=== PATIENT | female | born 1965 | race Caucasian/White ===

== ENCOUNTER 2017-09-21 08:11 | Observation (INO) | payer MEDICAID, OTHER ==
[~2017-09-21] VITALS: Ht 162.6 cm; Wt 57.5 kg
[2017-09-21] MEDS ORDERED: ASPIRIN 325 MG TAB PO STA (08:20)
[2017-09-21] MEDS ORDERED: NITROGLYCERIN (SL) 0.4 MG TAB SL PRN ×2 (08:30→11:30)
[2017-09-21] MEDS ORDERED: ONDANSETRON 4 MG INJ IV STA (08:30)
[2017-09-21] MEDS: morphine 4 MG/ML VIAL IV STA ×2 (08:42→08:50)
[2017-09-21 08:49] LABS: BASOPHILS % 0.5 % (0.0-2.0); EOSINOPHILS # 0.1 10^3/ul (0.0-0.5); EOSINOPHILS % 1.8 % (0.0-7.0); HEMATOCRIT 44.1 % (37.0-47.0); HEMOGLOBIN 14.5 g/dl (12.0-16.0); LYMPHOCYTES # 2.1 10^3/ul (0.8-2.9); LYMPHOCYTES % 32.5 % (15.0-51.0); MEAN CORPUSCULAR HEMOGLOBIN 29.3 pg (29.0-33.0); MEAN CORPUSCULAR HGB CONC 32.9 g/dl (32.0-37.0); MEAN CORPUSCULAR VOLUME 89.1 fl (82.0-101.0); MEAN PLATELET VOLUME 11.5 fl (7.4-10.4); MONOCYTE # 0.4 10^3/ul (0.3-0.9); MONOCYTES % 6.6 % (0.0-11.0); NEUTROPHIL # 3.8 10^3/ul (1.6-7.5); PLATELET COUNT 245 10^3/UL (140-415); RED BLOOD COUNT 4.95 10^6/ul (4.20-5.40); RED CELL DISTRIBUTION WIDTH 13.2 % (11.5-14.5); WHITE BLOOD COUNT 6.5 10^3/ul (4.8-10.8)
--- NOTE | 2017-09-21 08:53 | RADRPT ---
PROCEDURE: XR Chest. CLINICAL INDICATION: Chest pain. TECHNIQUE: AP Portable chest. COMPARISON: No pertinent prior examinations were submitted for comparison. FINDINGS: The cardiomediastinal silhouette is normal.The aortic arch is mildly calcified. No focal consolidati on, pleural effusion or pneumothorax is seen. The osseous structures are intact. IMPRESSION: No radiographic evidence of acute cardiopulmonary disease. Physician Nadir Date Time Electronically viewed and signed by Virginia Guillen Physician on 09/21/2017 08:53 MARCELINO/
[2017-09-21 09:05] LABS: INR 0.9; PROTIME 12.1 Sec (12.2-14.2); PT RATIO 0.9
--- NOTE | 2017-09-21 09:05 | ERD ---
ER Documentation Chief Complaint Chief Complaint rody sy CP described as squeezing since 0700 HPI This is a 52-year-old Vietnamese-speaking female with no past medical history that presents to the emergency department complaining of a sudden onset of a squeezing chest pressure that began at 7 AM, an hour and half prior to arrival. The patient indicates that the chest pressure does radiate to the left arm and back. The pain is 10 out of 10 in intensity. She had associated symptoms of nausea but denied any vomiting or diaphoresis. She denies any recent remote blunt or penetrating chest wall trauma. She is right-handed dominant. She has never had any similar symptoms in the past. She has had no fevers or shaking or chills and denies a productive or nonproductive cough. She has no shortness of breath at rest or exertion. She denies any abdominal pain and no numbness or tingling of her upper or lower extremities. ROS All systems reviewed and are negative except as per history of present illness. Physical Exam Vitals Vital Signs Date Time Temp Pulse Resp B/P Pulse Ox O2 Delivery O2 Flow Rate FiO2 09/21/17 09:04 Nasal Cannula 2 09/21/17 08:50 77 14 175/97 98 Nasal Cannula 2.0 09/21/17 08:12 98.7 80 20 188/85 98 Physical Exam Constitutional:Well-developed. Well-nourished. HEENT:Normocephalic. Atraumatic.Pupils were equal round reactive to light. Moist mucous membranes.No tonsillar exudates. Neck: No nuchal rigidity. No lymphadenopathy. No posterior cervical spine tenderness or step-offs. Respiratory: Not using accessory muscles of respiration.Lungs were clear to auscultation bilaterally. No rhonchi. No rales. No wheezing. Cardiovascular: Regular rate regular rhythm.No murmurs. No rubs were appreciated.S1, S2 normal. Distal pulses are palpable 2+ bilaterally. No reproducible chest wall tenderness crepitus or ecchymosis GI: Abdomen was soft. Nontender. Non Distended. No pulsatile abdominal masses or bruits. No rebound. No guarding. Bowel sounds were present and normal. Muscle skeletal: Full range of motion of both the upper and lower extremities bilaterally.Normal muscle tone.No assymetrical calf tenderness or swelling. Skin: No petechia, no purpura. No lesions on the palms or the soles of the feet. No maculopapular rash. NEURO: Patient was alert, awake, orientated x3.No facial droop. Gait observed and normal with no ataxia.Speech had regular rate and rhythm. No focal neurological deficits. Result Diagram: 09/21/17 0837 09/21/17 0837 Results 24 hrs Laboratory Tests Test 09/21/17 08:20 09/21/17 08:37 Prothrombin Time 12.1Sec Prothrombin Time Ratio 0.9 INR International Normalized Ratio 0.90 Activated Partial Thromboplast Time 25.2Sec White Blood Count 6.510^3/ul Red Blood Count 4.9510^6/ul Hemoglobin 14.5g/dl Hematocrit 44.1% Mean Corpuscular Volume 89.1fl Mean Corpuscular Hemoglobin 29.3pg Mean Corpuscular Hemoglobin Concent 32.9g/dl Red Cell Distribution Width 13.2% Platelet Count 24846^3/UL Mean Platelet Volume 11.5fl Neutrophils % 58.0% Lymphocytes % 32.5% Monocytes % 6.6% Eosinophils % 1.8% Basophils % 0.5% Nucleated Red Blood Cells % 0.0/100WBC Neutrophils # 3.810^3/ul Lymphocytes # 2.110^3/ul Monocytes # 0.410^3/ul Eosinophils # 0.110^3/ul Basophils # 0.010^3/ul Nucleated Red Blood Cells # 0.010^3/ul Sodium Level 143mmol/L Potassium Level 3.2mmol/L Chloride Level 105mmol/L Carbon Dioxide Level 25mmol/L Anion Gap 16 Blood Urea Nitrogen 14mg/dl Creatinine 0.59mg/dl Glucose Level 172mg/dl Calcium Level 8.4mg/dl Total Bilirubin 0.8mg/dl Direct Bilirubin 0.00mg/dl Indirect Bilirubin 0.8mg/dl Aspartate Amino Transf (AST/SGOT) 23IU/L Alanine Aminotransferase (ALT/SGPT) 24IU/L Alkaline Phosphatase 110IU/L Creatine Kinase 73IU/L Creatine Kinase Index 1.3 Creatinine Kinase MB (Mass) 0.94ng/ml Troponin I < 0.012ng/ml B-Type Natriuretic Peptide 93PG/ML Total Protein 7.5g/dl Albumin 4.2g/dl Globulin 3.30g/dl Albumin/Globulin Ratio 1.27 Lipase 129U/L Current Medications Medications (Trade) Dose Ordered Sig/Maegan Route PRN Reason Start Time Stop Time Status Last Admin Dose Admin Aspirin (Aspirin) 325 mg ONCE STAT PO 09/21/17 08:20 09/21/17 08:22 DC Nitroglycerin (Nitroglycerin (Sl Tab) 0.4 Mg) 1 tab Q5M UP TO 3 DOSES PRN SL CHEST PAIN 09/21/17 08:30 09/21/17 08:42 Morphine Sulfate (morphine) 4 mg ONCE STAT IV 09/21/17 08:30 09/21/17 08:32 DC 09/21/17 08:50 Ondansetron HCl 4 mg 4 mg ONCE STAT IV 09/21/17 08:30 09/21/17 08:32 DC 09/21/17 08:51 Iohexol 100 ml @ ud STK-MED ONCE .ROUTE 09/21/17 09:31 09/21/17 09:32 DC 09/21/17 09:45 Sodium Chloride (NS) 100 ml @ ud STK-MED ONCE .ROUTE 09/21/17 09:31 09/21/17 09:32 DC 09/21/17 09:45 Procedures/MDM The patient presented to the emergency department with chest pain. My clinical evaluation and workup was to distinguish minor causes of chest pain from acute life threatening conditions such as myocardial infarction, pulmonary embolism, aortic dissection, esophageal rupture, cardiac tamponade. The patient was placed on a property assessment monitor and continuous pulse oximetry. IV access established by nursing staff. Patient received aspirin and nitroglycerin with no improvement of her chest discomfort. Therefore the patient was given intravenous morphine and Zofran as an antiemetic. 12 Lead EKG tracing ordered and reviewed by myself showed: Normal sinus rhythm of 71 bpm and no arrhythmia. ME interval normal. Left axis deviation. Left ventricular hypertrophy. T- wave inversion in the lateral leads V4, V5, V6 and inferior leads III and aVF QRS duration normal. No ST segment elevation No ST segment depression. Chest radiograph showed no evidence of a widening mediastinum or infiltrate. Given the severity of the patient's symptoms with active chest pain radiating to the back I did feel is necessary to obtain a CT scan of the patient's chest which showed no evidence of aortic dissection. The patient will be admitted in serious condition to the hospitalist for serial 12-lead EKG tracings and cardiac set of enzymes Departure Diagnosis: Primary Impression: Chest pain Chest pain type: unspecified Qualified Code: R07.9 - Chest pain, unspecified type Condition: Serious ACOSTAMATEUSZ CORTES Sep 21, 2017 09:05
[2017-09-21 09:06] LABS: PARTIAL THROMBOPLASTIN TIME 25.2 Sec (25.0-35.0)
[2017-09-21 09:11] LABS: ALANINE AMINOTRANSFERASE 24 IU/L (13-69); ALBUMIN 4.2 g/dl (3.3-4.9); ALBUMIN/GLOBULIN RATIO 1.27; ALKALINE PHOSPHATASE 110 IU/L (42-121); ANION GAP 16 (8-16); ASPARTATE AMINO TRANSFERASE 23 IU/L (15-46); BILIRUBIN,INDIRECT 0.8 mg/dl (0-1.1); BILIRUBIN,TOTAL 0.8 mg/dl (0.2-1.3); BLOOD UREA NITROGEN 14 mg/dl (7-20); CALCIUM 8.4 mg/dl (8.4-10.2); CARBON DIOXIDE 25 mmol/L (21-31); CHLORIDE 105 mmol/L (97-110); CREATINE KINASE 73 IU/L (23-200); CREATININE 0.59 mg/dl (0.44-1.00); GLUCOSE 172 mg/dl (70-220); POTASSIUM 3.2 mmol/L (3.5-5.1); SODIUM 143 mmol/L (135-144); TOTAL PROTEIN 7.5 g/dl (6.1-8.1)
[2017-09-21 09:23] LABS: B-TYPE NATRIURETIC PEPTIDE 93 PG/ML (0-125); CK-MB 0.94 ng/ml (0.0-2.4)
[2017-09-21 09:27] LABS: TROPONIN-I < 0.012 ng/ml (0.00-0.12)
[2017-09-21] MEDS ORDERED: SOD CHLORIDE 0.9% 100 ML ONE (09:31)
[2017-09-21] MEDS ORDERED: IOHEXOL 100 ML ONE (09:31)
--- NOTE | 2017-09-21 10:18 | RADRPT ---
PROCEDURE: CT pulmonary angiogram. CLINICAL INDICATION: Chest pain and shortness of breath. TECHNIQUE: CT scan of the chest and CT pulmonary angiogram was performed utilizing axial tomograp hic imaging from the thoracic inlet to the domes of the diaphragm. High-resolution thin slice coron al and sagittal imaging was obtained from the axial source images. 3-D volumetric rendered post pro cessing was performed as well. The patient was examined following the uncomplicated intravenous adm inistration of 80 cc of Isovue 370. The images were reviewed on a PACS workstation. The total exam CTDI equals 56.34, 10.44 and the total exam DLP equals 422.54 mGy-cm. One or more of the following dose reduction techniques were used: Automated exposure control, adjustment of the mA and / or kV a ccording to patient size, or use of iterative reconstruction technique. COMPARISON: Chest x-ray performed earlier on the same date FINDINGS: The lungs demonstrate bilateral apical pleuroparenchymal scarring. No focal airspace opacity, pleur al effusion, or pneumothorax is seen. No pulmonary nodules or masses are identified. There is no ab normal interstitial thickening. The trachea and proximal bronchi are unremarkable. The visualized thyroid is unremarkable. The heart is grossly normal in size and configuration. The left vertebral artery arises directly from the aortic arch. The aorta is normal in caliber. There is no evidence of aortic dissection. The central pulmonary arteries are normal in caliber. The atten uation of the central pulmonary arteries measures 441 HU. No filling defects are identified within the proximal pulmonary arterial branches to suggest pulmonary embolism. No hilar, mediastinal, or axillary lymphadenopathy is identified. Limited evaluation of the upper abdomen is unremarkable. The osseous structures are unremarkable. IMPRESSION: 1. No CT evidence for pulmonary embolism. 2. Mild scarring of the lung apices. The lungs are otherwise clear. RPTAT: HH .Huyen Gan MD, Date Time Electronically viewed and signed by .Huyen Gan MD, MD on 09/21/2017 10:18 .G/
[2017-09-21] MEDS ORDERED: ONDANSETRON 4 MG INJ IV PRN ×2 (11:30)
[2017-09-21] MEDS ORDERED: ACETAMINOPHEN 325 MG TAB PO PRN ×2 (11:30)
[2017-09-21] MEDS ORDERED: MAGNESIUM HYDROXIDE 30ML CUP PO PRN (11:30)
[2017-09-21] MEDS ORDERED: NACL 0.9% 3 ML SYG IV SCH (11:30)
[2017-09-21] MEDS ORDERED: HYDROCODONE/APAP (5/325) TAB PO PRN (11:30)
[2017-09-21] MEDS ORDERED: DOCUSATE SODIUM 100 MG CAP PO PRN (11:30)
[2017-09-21] MEDS ORDERED: morphine 2 MG INJ IV PRN (11:30)
--- NOTE | 2017-09-21 12:07 | HP ---
Date/Time of Note Date/Time of Note DATE: 09/21/17 TIME: 12:07 Assessment/Plan VTE Prophylaxis VTE Prophylaxis Intervention: LMWH Lines/Catheters IV Catheter Type (from Nrsg): Peripheral IV Assessment/Plan Assessment/Plan 1. Chest pain rule out ACS - Patient denies any acid reflux or anxiety symptoms - CTA negative for acute PE - Cardiology consult placed and appreciated recommendations - Trop negative x1 and will continue trending - ECHO ordered- - TSH wnl - Lipid panel wnl - HR in 60s so will hold off on BB - Aspirin started 2. Hypokalemia - 3.2, replaced 3. Right knee arthritis - Tylenol for pain 4. HTN - started on Lisinopril and will adjust as needed - states was not on any medications for BP at home 5. DVT ppx -Lovenox 6. GI ppx - pepcid 7. Code status - Full code 8. Diet - Cardiac 9. Disposition - Admit to telemetry for cardiac workup HPI/ROS Admit Date/Time Admit Date/Time 09/21/17 Hx of Present Illness 52 yo F with PMH right knee arthritis and hypertension presented to ED after experiencing worsening chest pain that started last night around 8pm. Patient states she started experiencing mild chest discomfort 3 weeks ago but resolved so did not seek evaluation. She states she was lying in bed around 8pm when she felt sharp left sided chest pain, nonradiating, with associated diaphoresis. Pain lasted for minutes then resolved. Patient went to sleep and around 1am she woke up to moderate left sided chest pain with associated shortness of breath and diaphoresis lasting minutes again. At 7am she experiencing worsening pain, and came to the ED. Patient denies any associated nausea, vomiting, dizziness, wheezing, loss of consciousness, or abdominal issues. CTA performed in ED was negative for PE. Patient states she is active and was working yesterday prior to CP episodes. ROS Constitutional: no complaints, No diaphoresis, No disoriented, No nausea, No poor po, No weight change Eyes: no complaints ENT: No congestion, No discharge Respiratory: shortness of breath, No cough, No sputum, No wheezing Cardiovascular: chest pain, No edema, No lightheadedness, No palpitations Gastrointestinal: No constipation, No diarrhea, No nausea, No pain, No vomiting Genitourinary: no complaints Musculoskeletal: bone/joint pain (right knee discomfort) Skin: No erythema, No pruritis, No rash Neurologic: no complaints Endocrine: no complaints Lymphatic: no complaints Psychological: no complaints Immunologic: no complaints PMH/Family/Social Past Medical History Medical History: hypertension, other (right knee arthritis) Past Surgical History Past Surgical Hx: other (Csection) Family History Significant Family History: no pertinent family hx Social History Alcohol Use: none Smoking Status: Never smoker Drug Use: none Exam/Review of Systems Vital Signs Vitals Vital Signs Date Time Temp Pulse Resp B/P Pulse Ox O2 Delivery O2 Flow Rate FiO2 09/21/17 11:09 183/94 09/21/17 10:54 53 14 100 Nasal Cannula 2.0 09/21/17 08:12 98.7 Exam Constitutional: alert, oriented, well developed Psych: nl mood/affect Head: atraumatic, normocephalic Eyes: EOMI, PERRL, nl sclera ENMT: mucosa pink and moist Neck: non-tender, supple Respiratory: clear to auscultation, normal air movement, No crackles/rales, No wheezing Cardiovascular: regular rate and rhythm, No edema, No irregular rhythm, No murmurs/extra sounds, No systolic murmur Gastrointestinal: bowel sounds, non-tender, soft, No distended, No rebound or guarding Genitourinary - Female: No CVA tenderness Musculoskeletal: nl extremities to inspection Extremities: normal pulses Neurological: LAN ENGINEER II-XII intact, nl mental status, nl speech, nl strength Skin: nl turgor Lymph: nl lymph nodes Labs Result Diagram: 09/21/1783609/21/1737 Medications Medications Home medications reviewed Procedures Procedures PROCEDURE: CT pulmonary angiogram. CLINICAL INDICATION: Chest pain and shortness of breath. TECHNIQUE: CT scan of the chest and CT pulmonary angiogram was performed utilizing axial tomographic imaging from the thoracic inlet to the domes of the diaphragm. High-resolution thin slice coronal and sagittal imaging was obtained from the axial source images. 3-D volumetric rendered post processing was performed as well. The patient was examined following the uncomplicated intravenous administration of 80 cc of Isovue 370. The images were reviewed on a PACS workstation. The total exam CTDI equals 56.34, 10.44 and the total exam DLP equals 422.54 mGy-cm. One or more of the following dose reduction techniques were used: Automated exposure control, adjustment of the mA and / or kV according to patient size, or use of iterative reconstruction technique. COMPARISON: Chest x-ray performed earlier on the same date FINDINGS: The lungs demonstrate bilateral apical pleuroparenchymal scarring. No focal airspace opacity, pleural effusion, or pneumothorax is seen. No pulmonary nodules or masses are identified. There is no abnormal interstitial thickening. The trachea and proximal bronchi are unremarkable. The visualized thyroid is unremarkable. The heart is grossly normal in size and configuration. The left vertebral artery arises directly from the aortic arch. The aorta is normal in caliber. There is no evidence of aortic dissection. The central pulmonary arteries are normal in caliber. The attenuation of the central pulmonary arteries measures 441 HU. No filling defects are identified within the proximal pulmonary arterial branches to suggest pulmonary embolism. No hilar, mediastinal, or axillary lymphadenopathy is identified. Limited evaluation of the upper abdomen is unremarkable. The osseous structures are unremarkable. IMPRESSION: 1. No CT evidence for pulmonary embolism. 2. Mild scarring of the lung apices. The lungs are otherwise clear. PROCEDURE: XR Chest. CLINICAL INDICATION: Chest pain. TECHNIQUE: AP Portable chest. COMPARISON: No pertinent prior examinations were submitted for comparison. FINDINGS: The cardiomediastinal silhouette is normal.The aortic arch is mildly calcified. No focal consolidation, pleural effusion or pneumothorax is seen. The osseous structures are intact. IMPRESSION: No radiographic evidence of acute cardiopulmonary disease. PRITI WOLFF MD Sep 21, 2017 12:07
[2017-09-21 12:25] LABS: CHOL/HDL RATIO 3.9 RATIO
[2017-09-21] MEDS ORDERED: hydrALAzine 20 MG INJ IV PRN (12:30)
[2017-09-21] MEDS ORDERED: LISINOPRIL 5 MG TAB PO SCH (12:30)
[2017-09-21 15:30] VITALS: Ht 162.6 cm; Wt 57.5 kg
[2017-09-21] MEDS: ISOSORBIDE MONONITRATE(SR)30 MG TAB PO SCH (16:00)
[2017-09-21 16:58] VITALS: PULSE 50
--- NOTE | 2017-09-21 18:29 | CONS ---
DATE OF ADMISSION: 09/21/2017 DATE OF CONSULTATION: 09/21/2017 REASON FOR CONSULTATION: Chest pain. HISTORY OF PRESENT ILLNESS: The patient is a 52-year-old female who comes in with chest pain on and off for the last 2 weeks. However, today the chest pain was more severe in nature, localized to th e left side of the chest and radiates into the left upper extremity associated with numbness. She d enies any shortness of breath, dizziness, syncope or palpitation. Denies nausea or vomiting. Denie s headache or blurry vision. No fever, chills, or rigors. No prior history of coronary artery disease or myocardial infarction. No prior history of diabetes, hypertension, or dyslipidemia. SOCIAL HISTORY: No smoking, alcohol or recreational drug. ALLERGIES: NONE. CURRENT MEDICATIONS: Include: 1. Aspirin. 2. Lovenox. 3. Lisinopril. 4. Pepcid. REVIEW OF SYSTEMS: Unremarkable except that mentioned in the HPI. PHYSICAL EXAMINATION: VITAL SIGNS: Temperature is 98.7, heart rate of 51, blood pressure 145/91 mmHg, breathing at 13 and saturating 100% on 2 liters of oxygen. GENERAL: The patient awake, alert, oriented, in no apparent distress. NECK: No JVD or carotid bruit. CARDIOVASCULAR: Regular rate and rhythm, no murmur, rub or gallop. LUNGS: Clear to auscultation. ABDOMEN: Soft. Bowel sounds are present. There is no organomegaly. EXTREMITIES: No pedal edema. Pedal pulses are felt bilaterally. Review of 12-lead EKG shows normal sinus rhythm with a ventricular rate of ____(02:01) beats per min [place] with normal NH, normal QRS and normal QT intervals, with left atrial enlargement, left axis charity ation, left ventricular hypertrophy with T-wave inversion in inferior leads and anterolateral leads. Chest x-ray shows no congestion or infiltrate. CTA shows no evidence of pulmonary embolism. LABORATORY DATA: WBC 6.5, hemoglobin 14.5, hematocrit 44.1 with a platelet 245, sodium 143, potassi um 3.2, chloride 105, CO2 of 25, BUN 14, creatinine 0.59, BNP of 93. Troponin first set is less shlomo n 0.01. Labs: LDL 99, cholesterol 170, triglyceride 141, HDL 43. TSH is 1.7. ASSESSMENT AND PLAN: A 52-year-old female with: 1. Atypical chest pain. 2. Abnormal electrocardiogram with T-wave inversion in inferior and anterolateral leads. RECOMMENDATIONS: 1. Trend troponins. 2. Echocardiogram to assess for systolic function and to rule out for pulmonary artery disease and pericardial effusion. 3. Recommend stress test in the presence of ischemic changes with T-wave inversions in inferior and anterolateral leads. 4. Continue aspirin. 5. Increase lisinopril to 40 mg daily. 6. Continue nitro patch. 7. Monitor on telemetry. Dictated By: MARLYN LAZO MD SR/NTS Conf#: [id number] DID#: [id number]
[2017-09-21 20:16] VITALS: PULSE 71
[2017-09-21 20:35] VITALS: BP 144/74; RESP 17
[2017-09-21] MEDS: FAMOTIDINE 20 MG TAB PO SCH (21:00)
[2017-09-21] MEDS ORDERED: INFLUENZA VIRUS VACCINE 0.5 ML SYG IM* ONE (21:00)
[2017-09-22] VITALS (10 sets, daily range): BP systolic 126–135; BP diastolic 63–73; PULSE 49–84; RESP 17–20
[2017-09-22 07:35] LABS: BASOPHILS % 0.4 % (0.0-2.0); EOSINOPHILS # 0.1 10^3/ul (0.0-0.5); EOSINOPHILS % 1.2 % (0.0-7.0); HEMATOCRIT 43.1 % (37.0-47.0); HEMOGLOBIN 13.9 g/dl (12.0-16.0); LYMPHOCYTES # 1.9 10^3/ul (0.8-2.9); LYMPHOCYTES % 27.7 % (15.0-51.0); MEAN CORPUSCULAR HEMOGLOBIN 29.1 pg (29.0-33.0); MEAN CORPUSCULAR HGB CONC 32.3 g/dl (32.0-37.0); MEAN CORPUSCULAR VOLUME 90.4 fl (82.0-101.0); MONOCYTE # 0.5 10^3/ul (0.3-0.9); MONOCYTES % 7.9 % (0.0-11.0); NEUTROPHIL # 4.3 10^3/ul (1.6-7.5); NEUTROPHILS % 62.5 % (39.0-77.0); PLATELET COUNT 247 10^3/UL (140-415); RED BLOOD COUNT 4.77 10^6/ul (4.20-5.40); RED CELL DISTRIBUTION WIDTH 13.4 % (11.5-14.5); WHITE BLOOD COUNT 6.9 10^3/ul (4.8-10.8)
[2017-09-22 07:56] LABS: ALBUMIN 3.9 g/dl (3.3-4.9); CALCIUM 8.7 mg/dl (8.4-10.2); CREATININE 0.64 mg/dl (0.44-1.00); PHOSPHORUS 4.3 mg/dl (2.5-4.9); POTASSIUM 4.1 mmol/L (3.5-5.1)
[2017-09-22] MEDS: ASPIRIN 81 MG TAB PO SCH (08:24)
[2017-09-22] MEDS: FAMOTIDINE 20 MG TAB PO SCH ×2 (08:25→22:27)
[2017-09-22] MEDS: LISINOPRIL 20 MG TAB PO SCH (08:25)
[2017-09-22] MEDS: ISOSORBIDE MONONITRATE(SR)30 MG TAB PO SCH (08:25)
[2017-09-22] MEDS: ENOXAPARIN 40 MG/0.4 ML SYG SC SCH (08:31)
[2017-09-22] MEDS ORDERED: REGADENOSON 0.4 MG/5 ML SYG ONE (13:47)
--- NOTE | 2017-09-22 14:19 | CONS ---
Date/Time of Note Date/Time of Note DATE: 09/22/17 TIME: 14:16 Assessment/Plan Assessment/Plan Chief Complaint/Hosp Course ASSESSMENT AND PLAN: A 52-year-old female with: 1. Chest pain.-negative trop x 3 2. Abnormal electrocardiogram with T-wave inversion in inferior and anterolateral leads. 3. HTN 4.Dysliidemia-low HDL Recc; -Tele -serial ecg's -Continue imdur/ACEI -Lexiscan stress test today Problems: Consultation Date/Type/Reason Admit Date/Time Sep 21, 2017 at 12:07 Initial Consult Date 09/21/2017 Type of Consultation: cardiology Reason for Consultation chest pain Referring Provider: PRITI WOLFF MD Exam/Review of Systems Vital Signs Vitals Vital Signs Date Time Temp Pulse Resp B/P Pulse Ox O2 Delivery O2 Flow Rate FiO2 09/22/17 12:37 98.5 62 17 127/67 94 09/21/17 15:04 Nasal Cannula 2.0 Intake and Output 09/21/17 09/21/17 09/22/17 15:00 23:00 07:00 Intake Total 500 ml Balance 500 ml Exam Review of Systems: CONSTITUTIONAL: No fevers, chills. PULMONARY: No sob CARDIOVASCULAR:intermittent chest pain GASTROINTESTINAL: No nausea/vomiting. GENITOURINARY: No hematuria/dysuria. MUSCULOSKELETAL: No myagias/arthalgias. PSYCHIATRIC: The patient denies depression. NEUROLOGIC: No weakness Constitutional: alert Psych: no complaints Head: normocephalic ENMT: mucosa pink and moist Neck: jvd (9 cm water), supple Respiratory: diminished breath sounds (at bases/B) Cardiovascular: regular rate and rhythm Gastrointestinal: non-tender, soft Musculoskeletal: muscle tone (normal) Extremities: edema (none) Neurological: other (No focal deficits) Results Result Diagram: 09/22/17 0553 09/22/17 0553 Results 24 hrs Laboratory Tests Test 09/21/17 18:50 09/22/17 00:28 09/22/17 05:53 Troponin I < 0.012 < 0.012 < 0.012 White Blood Count 6.9 Red Blood Count 4.77 Hemoglobin 13.9 Hematocrit 43.1 Mean Corpuscular Volume 90.4 Mean Corpuscular Hemoglobin 29.1 Mean Corpuscular Hemoglobin Concent 32.3 Red Cell Distribution Width 13.4 Platelet Count 247 Mean Platelet Volume 12.0 H Neutrophils % 62.5 Lymphocytes % 27.7 Monocytes % 7.9 Eosinophils % 1.2 Basophils % 0.4 Nucleated Red Blood Cells % 0.0 Neutrophils # 4.3 Lymphocytes # 1.9 Monocytes # 0.5 Eosinophils # 0.1 Basophils # 0.0 Nucleated Red Blood Cells # 0.0 Sodium Level 142 Potassium Level 4.1 Chloride Level 102 Carbon Dioxide Level 31 Anion Gap 13 Blood Urea Nitrogen 16 Creatinine 0.64 Glucose Level 105 # Calcium Level 8.7 Phosphorus Level 4.3 Magnesium Level 2.0 Albumin 3.9 Medications Medications Current Medications Ondansetron HCl (Zofran Inj) 4 mg Q6H PRN IV NAUSEA AND/OR VOMITING; Start 09/21/17 at 11:30 Aspirin (Aspirin) 81 mg DAILY PO Last administered on 09/22/17 08:24; Admin Dose 81 MG; Start 09/22/17 at 09:00 Nitroglycerin (Nitroglycerin (Sl Tab) 0.4 Mg) 1 tab Q5M PRN SL CHEST PAIN; Start 09/21/17 at 11:30 Acetaminophen (Tylenol Tab) 650 mg Q6H PRN PO PAIN LEVEL 1-3 OR FEVER; Start 09/21/17 at 11:30 Acetaminophen/ Hydrocodone Bitart (Benedicta (5/325)) 1 tab Q6H PRN PO PAIN LEVEL 4 -6; Start 09/21/17 at 11:30 Morphine Sulfate (morphine) 2 mg Q4H PRN IV PAIN LEVEL 7-10; Start 09/21/17 at 11:30 Docusate Sodium (Colace) 100 mg Q12H PRN PO CONSTIPATION; Start 09/21/17 at 11: 30 Magnesium Hydroxide (Milk Of Mag) 30 ml DAILY PRN PO CONSTIPATION; Start at 11:30 Famotidine (Pepcid) 20 mg Q12 PO Last administered on 09/22/17 08:25; Admin Dose 20 MG; Start 09/21/17 at 21:00 Enoxaparin Sodium (Lovenox) 40 mg DAILY SC Last administered on 09/22/17 08:31 ; Admin Dose 40 MG; Start 09/22/17 at 09:00 Hydralazine HCl (Apresoline) 10 mg Q6H PRN IV SBP >160; Start 09/21/17 at 12:30 Lisinopril (Zestril) 40 mg DAILY PO Last administered on 09/22/17 08:25; Admin Dose 40 MG; Start 09/22/17 at 09:00 Isosorbide Mononitrate (Imdur) 30 mg DAILY PO Last administered on 09/22/17 08 :25; Admin Dose 30 MG; Start 09/21/17 at 16:00 Methocarbamol (Robaxin) 1,500 mg TID PO ; Start 09/22/17 at 13:00 NASREEN VELOZ Sep 22, 2017 14:19
--- NOTE | 2017-09-22 15:48 | CONS ---
DATE OF ADMISSION: 09/21/2017 DATE OF CONSULTATION: 09/22/2017 CASSANDRA FOR CONSULTATION: Chest pain, assess for acute coronary syndrome. BASELINE VITAL SIGNS/ELECTROCARDIOGRAM: Pulse 56, blood pressure 145/72. Electrocardiogram reveals sinus bradycardia at a rate of 56 with inferior, anterolateral T-wave inversions. PROCEDURE: The patient underwent standard Lexiscan infusion protocol over 10 seconds followed by ra diolabeled tracer. The patient's test was stopped due to completion of protocol. Maximal achieved blood pressure during the test of 117/59. Maximum heart rate during the test 90. ECG FINDINGS: The patient did not develop any new Lexiscan-induced ST or T-wave changes from baseli ne abnormalities. No documented PVCs. SYMPTOMS: The patient had complaint shortness of breath during stress test which resolved in recove ry. No chest pain. IMPRESSION: 1. No Lexiscan-induced ST or T-wave changes from baseline abnormalities or diagnostic cardiac ische isak. 2. Complaints of shortness of breath during stress test that resolved in recovery. 3. No chest pain during stress testing. 4. No documented premature ventricular contractions during stress testing. 5. Report of nuclear images to follow in separate dictation. Dictated By: NASREEN DICKENS/YULIANA Conf#: [id number] DID#: [id number] CC: Dr. Bray;*End*
[2017-09-22] MEDS: METHOCARBAMOL 750 MG TAB PO SCH ×2 (15:58→22:27)
--- NOTE | 2017-09-22 16:21 | PN ---
Date/Time of Note Date/Time of Note DATE: 09/22/17 TIME: 16:19 Assessment/Plan VTE Prophylaxis VTE Prophylaxis Intervention: SCD's Lines/Catheters IV Catheter Type (from [facility]): Saline Lock Urinary Cath still in place: No Assessment/Plan Chief Complaint/Hosp Course 1. Chest pain rule out ACS - Patient denies any acid reflux or anxiety symptoms - CTA negative for acute PE - Cardiology consult placed and appreciated recommendations - Trop negative x1 and will continue trending - ECHO ordered- - TSH wnl - Lipid panel wnl - HR in 60s so will hold off on BB - Aspirin started 2. Hypokalemia - 3.2, replaced 3. Right knee arthritis - Tylenol for pain 4. HTN - started on Lisinopril and will adjust as needed - states was not on any medications for BP at home 5. DVT ppx -Lovenox 6. GI ppx - pepcid 7. Code status - Full code 8. Diet - Cardiac 9. Disposition -lexiscan negative, but chest pain continues, will try robaxin, likely DC tomorrow Problems: Subjective 24 Hr Interval Summary Free Text/Dictation still occasional chest pain, left sided Exam/Review of Systems Vital Signs Vitals Vital Signs Date Time Temp Pulse Resp B/P Pulse Ox O2 Delivery O2 Flow Rate FiO2 09/22/17 12:37 98.5 62 17 127/67 94 09/21/17 15:04 Nasal Cannula 2.0 Intake and Output 09/21/17 09/21/17 09/22/17 15:00 23:00 07:00 Intake Total 500 ml Balance 500 ml Exam Physical exam General: Patient is laying in bed and answers questions appropriately Mentation: Patient is alert and oriented 4, Head: Normocephalic atraumatic Eyes: EOMI, pupils reactive to light Neck: Supple, nontender, midline Respiratory: Clear to auscultation bilaterally Cardiovascular: regular rate, no obvious murmurs Gastrointestinal: non-tender to palpation, bowel sounds heard. Neurological: Moves all extremities spontaneously Skin: No new skin lesions Results Result Diagram: 09/22/17 0553 09/22/17 0553 Results 24 hrs Laboratory Tests Test 09/21/17 18:50 09/22/17 00:28 09/22/17 05:53 Troponin I < 0.012 < 0.012 < 0.012 White Blood Count 6.9 Red Blood Count 4.77 Hemoglobin 13.9 Hematocrit 43.1 Mean Corpuscular Volume 90.4 Mean Corpuscular Hemoglobin 29.1 Mean Corpuscular Hemoglobin Concent 32.3 Red Cell Distribution Width 13.4 Platelet Count 247 Mean Platelet Volume 12.0 H Neutrophils % 62.5 Lymphocytes % 27.7 Monocytes % 7.9 Eosinophils % 1.2 Basophils % 0.4 Nucleated Red Blood Cells % 0.0 Neutrophils # 4.3 Lymphocytes # 1.9 Monocytes # 0.5 Eosinophils # 0.1 Basophils # 0.0 Nucleated Red Blood Cells # 0.0 Sodium Level 142 Potassium Level 4.1 Chloride Level 102 Carbon Dioxide Level 31 Anion Gap 13 Blood Urea Nitrogen 16 Creatinine 0.64 Glucose Level 105 # Calcium Level 8.7 Phosphorus Level 4.3 Magnesium Level 2.0 Albumin 3.9 Medications Medications Current Medications Ondansetron HCl (Zofran Inj) 4 mg Q6H PRN IV NAUSEA AND/OR VOMITING; Start 09/21/17 at 11:30 Aspirin (Aspirin) 81 mg DAILY PO Last administered on 09/22/17 08:24; Admin Dose 81 MG; Start 09/22/17 at 09:00 Nitroglycerin (Nitroglycerin (Sl Tab) 0.4 Mg) 1 tab Q5M PRN SL CHEST PAIN; Start 09/21/17 at 11:30 Acetaminophen (Tylenol Tab) 650 mg Q6H PRN PO PAIN LEVEL 1-3 OR FEVER; Start 09/21/17 at 11:30 Acetaminophen/ Hydrocodone Bitart ([place] (5/325)) 1 tab Q6H PRN PO PAIN LEVEL 4 -6; Start 09/21/17 at 11:30 Morphine Sulfate (morphine) 2 mg Q4H PRN IV PAIN LEVEL 7-10; Start 09/21/17 at 11:30 Docusate Sodium (Colace) 100 mg Q12H PRN PO CONSTIPATION; Start 09/21/17 at 11: 30 Magnesium Hydroxide (Milk Of Mag) 30 ml DAILY PRN PO CONSTIPATION; Start at 11:30 Famotidine (Pepcid) 20 mg Q12 PO Last administered on 09/22/17 08:25; Admin Dose 20 MG; Start 09/21/17 at 21:00 Enoxaparin Sodium (Lovenox) 40 mg DAILY SC Last administered on 09/22/17 08:31 ; Admin Dose 40 MG; Start 09/22/17 at 09:00 Hydralazine HCl (Apresoline) 10 mg Q6H PRN IV SBP >160; Start 09/21/17 at 12:30 Lisinopril (Zestril) 40 mg DAILY PO Last administered on 09/22/17 08:25; Admin Dose 40 MG; Start 09/22/17 at 09:00 Isosorbide Mononitrate (Imdur) 30 mg DAILY PO Last administered on 09/22/17 08 :25; Admin Dose 30 MG; Start 09/21/17 at 16:00 Methocarbamol (Robaxin) 1,500 mg TID PO Last administered on 09/22/17 15:58; Admin Dose 1,500 MG; Start 09/22/17 at 13:00 DEE BUSTAMANTE Sep 22, 2017 16:20
--- NOTE | 2017-09-22 16:24 | RADRPT ---
PROCEDURE: Lexiscan myocardial perfusion study CLINICAL INDICATION: 52 -year-old patient complaining of chest pain. TECHNIQUE: Lexiscan 0.4 mg intravenously separate acquisition gated myocardial perfusion SPECT usi ng Tc 99m Myoview 27.0 mCi intravenously at stress and Tc-99m Myoview, 10.0 mCi intravenously at res t was performed using the rest/stress sequence. Poststress Myoview SPECT images were obtained in th e supine position. COMPARISON: No prior studies. FINDINGS: Perfusion images reveal no evidence of perfusion defects. Lexiscan post stress gated SPECT images demonstrate no wall motion abnormalities. IMPRESSION: 1. No evidence of perfusion defects. 2. No wall motion abnormalities. 3. The left ventricle ejection fraction at stress is 63%. A call report was made to Dr. Odell at 04:23 p.m. on September 22, 2017. RPTAT: HH .Catalina Harry MD, Date Time Electronically viewed and signed by .Catalina Harry MD, MD on 09/22/2017 16:23 .L/
[2017-09-23] VITALS: BP 112/53; RESP 16
[2017-09-23 00:42] VITALS: PULSE 65
[2017-09-23 04:00] VITALS: BP 118/56; RESP 15
[2017-09-23 04:51] VITALS: PULSE 78
[2017-09-23 07:41] VITALS: BP 135/68; RESP 17
[2017-09-23 08:23] VITALS: PULSE 56
[2017-09-23 08:50] LABS: BASOPHILS % 0.2 % (0.0-2.0); EOSINOPHILS # 0.1 10^3/ul (0.0-0.5); EOSINOPHILS % 0.8 % (0.0-7.0); HEMATOCRIT 40.9 % (37.0-47.0); HEMOGLOBIN 13.8 g/dl (12.0-16.0); LYMPHOCYTES % 23.8 % (15.0-51.0); MEAN CORPUSCULAR HEMOGLOBIN 30.5 pg (29.0-33.0); MEAN CORPUSCULAR HGB CONC 33.7 g/dl (32.0-37.0); MEAN CORPUSCULAR VOLUME 90.3 fl (82.0-101.0); MEAN PLATELET VOLUME 12.1 fl (7.4-10.4); MONOCYTE # 0.7 10^3/ul (0.3-0.9); MONOCYTES % 8.4 % (0.0-11.0); NEUTROPHIL # 5.6 10^3/ul (1.6-7.5); NEUTROPHILS % 66.6 % (39.0-77.0); PLATELET COUNT 236 10^3/UL (140-415); RED BLOOD COUNT 4.53 10^6/ul (4.20-5.40); RED CELL DISTRIBUTION WIDTH 13.3 % (11.5-14.5); WHITE BLOOD COUNT 8.4 10^3/ul (4.8-10.8)
[2017-09-23] MEDS: ASPIRIN 81 MG TAB PO SCH (08:53)
[2017-09-23] MEDS: ISOSORBIDE MONONITRATE(SR)30 MG TAB PO SCH (08:54)
[2017-09-23] MEDS: LISINOPRIL 20 MG TAB PO SCH (08:54)
[2017-09-23] MEDS: FAMOTIDINE 20 MG TAB PO SCH (08:56)
[2017-09-23] MEDS: ENOXAPARIN 40 MG/0.4 ML SYG SC SCH (08:59)
[2017-09-23] MEDS: METHOCARBAMOL 750 MG TAB PO SCH (09:03)
[2017-09-23 09:22] LABS: ALBUMIN 3.7 g/dl (3.3-4.9); CALCIUM 8.5 mg/dl (8.4-10.2); CREATININE 0.63 mg/dl (0.44-1.00); PHOSPHORUS 3.7 mg/dl (2.5-4.9); POTASSIUM 3.7 mmol/L (3.5-5.1)
[2017-09-23] MEDS ORDERED: FAMO20TA18 PO (09:40)
[2017-09-23] MEDS ORDERED: LISI40TA9 PO (09:40)
[2017-09-23] MEDS ORDERED: ASPI81TA3 PO (09:40)
--- NOTE | 2017-09-23 09:42 | PDOCDIS ---
Discharge Instructions CONDITION Patient Condition: Stable HOME CARE INSTRUCTIONS: Special Diet: cardiac FOLLOW UP/APPOINTMENTS Follow-up Plan 1. Follow up with your primary care provider as soon as possible DEE BUSTAMANTE Sep 23, 2017 09:42
--- NOTE | 2017-09-23 11:07 | CONS ---
Date/Time of Note Date/Time of Note DATE: 09/23/17 TIME: 11:06 Assessment/Plan Assessment/Plan Additional Assessment/Plan 1. Chest pain.-negative trop x 3 - STRESS TEST NL EF, no ischemia 2. Abnormal electrocardiogram with T-wave inversion in inferior and anterolateral leads- r/o OK. 3. HTN - better now, Rx as needed 4.Dysliidemia-low HDL Consultation Date/Type/Reason Admit Date/Time Sep 21, 2017 at 12:07 Initial Consult Date Type of Consultation: cardiology Referring Provider: PRITI WOLFF MD 24 HR Interval Summary Free Text/Dictation NO acute events - no ectopy on tele - negative stress test ROS: No fever, no chills, no nausea, no vomiting, no diarrhea/constipation No recent weight changes No chest pain, no PND, no orthopnea No dizziness, blurred vision No thirst, no heat or cold intolerance Exam/Review of Systems Vital Signs Vitals Vital Signs Date Time Temp Pulse Resp B/P Pulse Ox O2 Delivery O2 Flow Rate FiO2 09/23/17 08:23 56 09/23/17 07:41 98.4 17 135/68 97 09/22/17 20:00 Room Air 09/21/17 15:04 2.0 Intake and Output 09/22/17 09/22/17 09/23/17 15:00 23:00 07:00 Intake Total 70 ml Balance 70 ml Exam General: WN/WD/NAD, AOx 3 HEENT: Unicetric/atraumatic/EOMI (follow commands) NECK: JVD elevated, no thyromegaly Lymph: no lymphadenopathy HEART: regular with no S3, II/ systolic murmur at apex LUNGS: Coarse sounds ABD: soft, NT, ND, +BS : Intact Neuro: non focal SKIN: chronic changes EXT: trace edema Results Result Diagram: 09/23/1772609/23/17726 Results 24 hrs Laboratory Tests Test 09/23/17 07:27 White Blood Count 8.4 # Red Blood Count 4.53 Hemoglobin 13.8 Hematocrit 40.9 Mean Corpuscular Volume 90.3 Mean Corpuscular Hemoglobin 30.5 Mean Corpuscular Hemoglobin Concent 33.7 Red Cell Distribution Width 13.3 Platelet Count 236 Mean Platelet Volume 12.1 H Neutrophils % 66.6 Lymphocytes % 23.8 Monocytes % 8.4 Eosinophils % 0.8 Basophils % 0.2 Nucleated Red Blood Cells % 0.0 Neutrophils # 5.6 Lymphocytes # 2.0 Monocytes # 0.7 Eosinophils # 0.1 Basophils # 0.0 Nucleated Red Blood Cells # 0.0 Sodium Level 141 Potassium Level 3.7 Chloride Level 104 Carbon Dioxide Level 30 Anion Gap 11 Blood Urea Nitrogen 14 Creatinine 0.63 Glucose Level 105 Calcium Level 8.5 Phosphorus Level 3.7 Magnesium Level 2.0 Albumin 3.7 Medications Medications Current Medications Ondansetron HCl (Zofran Inj) 4 mg Q6H PRN IV NAUSEA AND/OR VOMITING; Start 09/21/17 at 11:30 Aspirin (Aspirin) 81 mg DAILY PO Last administered on 09/23/17 08:53; Admin Dose 81 MG; Start 09/22/17 at 09:00 Nitroglycerin (Nitroglycerin (Sl Tab) 0.4 Mg) 1 tab Q5M PRN SL CHEST PAIN; Start 09/21/17 at 11:30 Acetaminophen (Tylenol Tab) 650 mg Q6H PRN PO PAIN LEVEL 1-3 OR FEVER; Start 09/21/17 at 11:30 Acetaminophen/ Hydrocodone Bitart ([place] (5/325)) 1 tab Q6H PRN PO PAIN LEVEL 4 -6; Start 09/21/17 at 11:30 Morphine Sulfate (morphine) 2 mg Q4H PRN IV PAIN LEVEL 7-10; Start 09/21/17 at 11:30 Docusate Sodium (Colace) 100 mg Q12H PRN PO CONSTIPATION; Start 09/21/17 at 11: 30 Magnesium Hydroxide (Milk Of Mag) 30 ml DAILY PRN PO CONSTIPATION; Start at 11:30 Famotidine (Pepcid) 20 mg Q12 PO Last administered on 09/23/17 08:56; Admin Dose 20 MG; Start 09/21/17 at 21:00 Enoxaparin Sodium (Lovenox) 40 mg DAILY SC Last administered on 09/23/17 08:59 ; Admin Dose 40 MG; Start 09/22/17 at 09:00 Hydralazine HCl (Apresoline) 10 mg Q6H PRN IV SBP >160; Start 09/21/17 at 12:30 Lisinopril (Zestril) 40 mg DAILY PO Last administered on 09/23/17 08:54; Admin Dose 40 MG; Start 09/22/17 at 09:00 Isosorbide Mononitrate (Imdur) 30 mg DAILY PO Last administered on 09/23/17 08 :54; Admin Dose 30 MG; Start 09/21/17 at 16:00 Methocarbamol (Robaxin) 1,500 mg TID PO Last administered on 09/23/17 09:03; Admin Dose 1,500 MG; Start 09/22/17 at 13:00 ROHIT COLEMAN MD Sep 23, 2017 11:07
--- NOTE | 2017-09-23 14:56 | DS ---
Date/Time of Note Date/Time of Note DATE: 09/23/17 TIME: 14:56 Discharge Summary Admission/Discharge Info Admit Date/Time Sep 21, 2017 at 12:07 Discharge Date/Time Sep 23, 2017 at 11:47 Patient Condition: Stable Hx of Present Illness 52 yo F with PMH right knee arthritis and hypertension presented to ED after experiencing worsening chest pain that started last night around 8pm. Patient states she started experiencing mild chest discomfort 3 weeks ago but resolved so did not seek evaluation. She states she was lying in bed around 8pm when she felt sharp left sided chest pain, nonradiating, with associated diaphoresis. Pain lasted for minutes then resolved. Patient went to sleep and around 1am she woke up to moderate left sided chest pain with associated shortness of breath and diaphoresis lasting minutes again. At 7am she experiencing worsening pain, and came to the ED. Patient denies any associated nausea, vomiting, dizziness, wheezing, loss of consciousness, or abdominal issues. CTA performed in ED was negative for PE. Patient states she is active and was working yesterday prior to CP episodes. Hospital Course Patient is a 52-year-old female who presents for chest pain. Patient has past medical history significant for hypertension but not adequately treated due to patient not following up with primary care provider. Patient was evaluated in the ED and admitted to the medicine service and seen by cardiology. Cardiology control patient's blood pressure and then perform stress test. Stress test was negative for any acute ischemic findings and patient will be discharged with an appropriate dosage of her hypertension medications. Patient's chest pain is likely musculoskeletal or GI related at this time as it is improved and there are no signs of ischemic disease. Patient was given advice to follow-up with a primary care provider chest pain persists and to follow-up with moderate use of Tylenol and NSAIDs for occasional pain. Patient understands that the most important factor in her evaluation is to follow-up with her primary care provider. Chest pain, likely secondary to musculoskeletal strain Electrolyte derangement, resolved Right knee arthritis, chronic Hypertension, Medical noncompliance Home Meds Active Scripts Famotidine* (Famotidine*) 20 Mg Tablet, 20 MG PO Q12 for 30 Days, #60 TAB Prov:DEE BUSTAMANTE 09/23/17 Lisinopril* (Lisinopril*) 40 Mg Tablet, 40 MG PO DAILY, #30 TAB 2 Refills Prov:DEE BUSTAMANTE 09/23/17 Follow-up Plan 1. Follow up with your primary care provider as soon as possible Primary Care Provider Care Physician No Primary Time spent on discharge: > 30 minutes Pending Labs Laboratory Tests Test 09/23/17 07:27 White Blood Count 8.410^3/ul (4.8-10.8) Red Blood Count 4.5310^6/ul (4.20-5.40) Hemoglobin 13.8g/dl (12.0-16.0) Hematocrit 40.9% (37.0-47.0) Mean Corpuscular Volume 90.3fl (82.0-101.0) Mean Corpuscular Hemoglobin 30.5pg (29.0-33.0) Mean Corpuscular Hemoglobin Concent 33.7g/dl (32.0-37.0) Red Cell Distribution Width 13.3% (11.5-14.5) Platelet Count 21840^3/UL (140-415) Mean Platelet Volume 12.1fl (7.4-10.4) Neutrophils % 66.6% (39.0-77.0) Lymphocytes % 23.8% (15.0-51.0) Monocytes % 8.4% (0.0-11.0) Eosinophils % 0.8% (0.0-7.0) Basophils % 0.2% (0.0-2.0) Nucleated Red Blood Cells % 0.0/100WBC (0.0-0.0) Neutrophils # 5.610^3/ul (1.6-7.5) Lymphocytes # 2.010^3/ul (0.8-2.9) Monocytes # 0.710^3/ul (0.3-0.9) Eosinophils # 0.110^3/ul (0.0-0.5) Basophils # 0.010^3/ul (0.0-0.1) Nucleated Red Blood Cells # 0.010^3/ul (0.0-0.0) Sodium Level 141mmol/L (135-144) Potassium Level 3.7mmol/L (3.5-5.1) Chloride Level 104mmol/L (97-110) Carbon Dioxide Level 30mmol/L (21-31) Anion Gap 11 (8-16) Blood Urea Nitrogen 14mg/dl (7-20) Creatinine 0.63mg/dl (0.44-1.00) Glucose Level 105mg/dl (70-220) Calcium Level 8.5mg/dl (8.4-10.2) Phosphorus Level 3.7mg/dl (2.5-4.9) Magnesium Level 2.0mg/dl (1.7-2.5) Albumin 3.7g/dl (3.3-4.9) DEE BUSTAMANTE Sep 23, 2017 14:56
--- NOTE | 2017-09-25 21:15 | RADRPT ---
Echocardiogram Report Patient Name: JESS MANNING Gender: Female Date: 1965 Study Date: 22-Sep-2017 [employer] Soccer Coach: Kwadwo [facility] Location: [id number] Ref. Physician: PRITI WOLFF Quality: Technically Difficult Study Procedures: Transthoracic echocardiogram with complete 2D, M-Mode, and doppler examination. Indications: Chest Pain. 2D/M Mode Doppler Measurement Value Normal Ranges Measurement Value Normal Ranges LVIDd 2D 3.6 3.5 - 5.6 cm AV Peak Elver 1.5 m/sec LVIDs 2D 2.4 2.1 - 4.1 cm AV Peak PG 8.0 mmHg FS 2D 33.1 % LVOT Peak Elver 1.0 m/sec LVPWd 2D 1.3 0.6 - 1.1 cm LVOT Peak PG 4.0 mmHg IVSd 2D 1.3 0.6 - 1.1 cm MV E Peak Elver 0.7 m/sec IVS/LVPW 2D 1.0 MV A Peak Elver 0.7 m/sec AoR Diam 2D 2.8 2.0 - 3.7 cm MV E/A 1.0 LA/Ao 2D 1 0 - 1 MV Decel Time 257 msec EDV 2D 47.8 cm3 MV E/A 1.0 ESV 2D 14.3 cm3 TR Peak Elver 2.0 m/sec LA Dimen 2D 3.1 2.3 - 4.0 cm TR Peak PG 15.0 mmHg RVSP 18.0 mmHg Findings Left Ventricle: Normal left ventricular systolic function. Normal left ventricular cavity size. Mild concentric left ventricular hypertrophy. Ejection fraction is visually estimated at 55 %. Tissue Doppler/Mitral Doppler indices are consistent with impaired relaxation (Stage I diastolic dysfunction). Right Ventricle: Normal right ventricular size. Normal right ventricular systolic function. Left Atrium: The left atrium is normal in size. Right Atrium: The right atrium is normal in size. Mitral Valve: Normal appearance and function of the mitral valve with trace physiologic regurgitation. Aortic Valve: Normal appearance of the aortic valve. No significant aortic stenosis or insufficiency. Tricuspid Valve: Normal appearance of the tricuspid valve. Estimated peak PA systolic pressure 18 mmHg. There is trace tricuspid regurgitation. Pulmonic Valve: Pulmonic valve not well visualized. There is trace pulmonic regurgitation. Pericardium: Normal pericardium with no significant pericardial effusion. Aorta: Normal aortic root. IVC: Normal size and normal respiratory collapse consistent with normal right atrial pressure. Conclusions 1.Normal left ventricular systolic function. Normal left ventricular cavity size. Mild concentric left ventricular hypertrophy. Ejection fraction is visually estimated at 55 %. Tissue Doppler/Mitral Doppler indices are consistent with impaired relaxation (Stage I diastolic dysfunction). 2.Normal appearance and function of the mitral valve with trace physiologic regurgitation. 3.Normal appearance of the tricuspid valve. Estimated peak PA systolic pressure 18 mmHg. There is trace tricuspid regurgitation. 4.Pulmonic valve not well visualized. There is trace pulmonic regurgitation. Electronically Signed By: Ramin Odell 25-Sep-2017 21:14:39 -0800 Patient Name: JESS MANNING Study Date: 22-Sep-2017 [id number]
== END 2017-09-23 11:47 | disposition home or self-care (01) ==
LOC: E/R 08:11 → MS4 12:07
PROVIDERS: ADMIT Internal Medicine; ATTEND Internal Medicine
DX: R07.9 Chest pain, unspecified (principal); E87.6 Hypokalemia; M17.11 Unilateral primary osteoarthritis, right knee; I10 Essential (primary) hypertension; E78.5 Hyperlipidemia, unspecified; R94.31 Abnormal electrocardiogram [ECG] [EKG]; Z79.82 Long term (current) use of aspirin
CPT/HCPCS: 36415; 71010; 71275; 78452; 80053; 80061; 80069; 82550; 82553; 83690; 83735; 83880; 84443; 84484; 85025; 85610; 85730; 90686; 93005; 93017; 93306; 96374; 96375; A9500; A9505; J0360; J1650; J2270; J2405; J2785; Q9967; Z7500; Z7502; Z7610; G0378